=== PATIENT | female | born 1980 | race Caucasian/White ===

== ENCOUNTER 2018-08-12 08:40 | Day surgery (SDC) | payer BC ==
[2018-08-11 09:53] VITALS: BMI 19.8
--- NOTE | 2018-08-12 11:00 | HP ---
History & Physical Update - History History: No Change - Physical Physical: No Change - Assessment Assessment: No Change - Plan Plan: No Change (No change in medical history since pre-operative visit on (see paper chart). No h/o DVT/PE.)
[2018-08-12] MEDS ORDERED: LIDOCAINE HCL 1%, 10 MG/ML (20ML VIAL) ONE (11:13)
[2018-08-12] MEDS ORDERED: EPINEPHrine/PF 1 MG/1 ML (1:1,000) AMPULE ONE (11:13)
[2018-08-12] MEDS ORDERED: GENTAMICIN SO4 80 MG/2 ML VIAL ONE (11:14)
[2018-08-12] MEDS ORDERED: ceFAZolin SODIUM 1 GM VIAL ONE (11:14)
[2018-08-12] MEDS ORDERED: MIDAZOLAM HCL 2 MG/2 ML SINGLE DOSE VIAL ONE ×2 (11:24)
[2018-08-12] MEDS ORDERED: BUPIVACAINE LIPOSOME/PF (EXPAREL) 266 MG/20 ML VIAL NR ONE ×2 (11:30→12:30)
[2018-08-12] MEDS ORDERED: PROPOFOL 20 ML ONE (11:47)
[2018-08-12] MEDS ORDERED: ROCURONIUM BROMIDE 50 MG/5 ML VIAL ONE (11:47)
[2018-08-12] MEDS ORDERED: ceFAZolin SODIUM 1 GM VIAL IVPB ONE (12:10)
[2018-08-12] MEDS ORDERED: LIDOCAINE 1%/EPI 1:100000 (50 ML MULTI DOSE VIAL) NR ONE (12:12)
[2018-08-12] MEDS ORDERED: DEXAMETHASONE SOD PHOSPHATE 4 MG/1 ML VIAL ONE ×2 (12:20→12:21)
[2018-08-12] MEDS ORDERED: ONDANSETRON 4 MG/2 ML VIAL IVPUSH PRN (12:29)
[2018-08-12] MEDS ORDERED: oxyCODONE HCL 5 MG TABLET PO PRN (12:29)
[2018-08-12] MEDS ORDERED: LACTATED RINGERS SOLUTION 1,000 ML IV SCH (12:30)
[2018-08-12] MEDS ORDERED: BUPIVACAINE HCL/PF 0.25% (2.5MG/ML) 10 ML VIAL IJ ONE (12:30)
[2018-08-12] MEDS ORDERED: PROMETHAZINE HCL 25 MG/1 ML VIAL ONE (13:36)
--- NOTE | 2018-08-12 13:56 | OP ---
Operative Note - Note: Operative Date: 08/12/18 Pre-Operative Diagnosis: Bilateral acquired chest wall deformity, s/p b/l mastectomy, malposition with contracture of bilateral implants Operation: Right breast reconstruction, left breast reconstruction, right breast capsulotomy, removal and replacement of right breast implant, left breast capsulotomy, removal and replacement of left breast implant Findings: as dictated Implants: as dictated Post-Operative Diagnosis: Same as Pre-op Surgeon: Lee Maguire Washer Carcass: Sophie Stanton Anesthesiologist/TALK SHOW HOST: Dusty Cochran Anesthesia: General, Local (Exparel/Marcaine) Specimens Removed: right breast mastectomy scar, bilateral breast implants Estimated Blood Loss (mls): 10 (ml) Fluid Volume Replaced (mls): 1,400 (ml) Operative Report Dictated: Yes
[2018-08-12] MEDS ORDERED: PROMETHAZINE HCL 25 MG/1 ML VIAL IVPUSH ONE (13:58)
--- NOTE | 2018-08-12 14:01 | SURG ---
Surgery Service Representative Note Service Representative: Sophie Stanton PA-C (Suzy) Date of Service: 08/12/18 Diagnosis: Bilateral acquired chest wall deformity, s/p b/l mastectomy, malposition with contracture of bilateral implants Procedure: Operation: Right breast reconstruction, left breast reconstruction, right breast capsulotomy, removal and replacement of right breast implant, left breast capsulotomy, removal and replacement of left breast implant I was present for the entirety of the operative procedure. For further detail, please refer to operative report. Visit type - Case Type Case Type: Scheduled - Emergency Emergency Visit: No - New patient This patient is new to me today: Yes Date on this admission: 08/15/18 - Critical Care Critical Care patient: No
[2018-08-12] MEDS ORDERED: ACETAMINOPHEN INJECTION 100 ML IVPB ONE (14:16)
[2018-08-12] MEDS ORDERED: ACETAMINOPHEN 1000 MG/100 ML VIAL (NON FORMULARY) IVPB ONE (14:24)
[2018-08-12] MEDS ORDERED: oxyCODONE HCL 5 MG TABLET ONE (15:49)
[2018-08-12 16:02] VITALS: PULSE 76
[2018-08-12 17:49] VITALS: BP 107/58; TEMP 98.8
--- NOTE | 2018-08-14 13:51 | OP ---
DATE OF OPERATION: 08/12/2018 SURGEON: Yanci Maguire MD ENGINE REPAIR SUPERVISOR SURGEON: FIORELLA Aguillon PREOPERATIVE DIAGNOSES: 1. Bilateral acquired chest wall deformity, status post bilateral mastectomy. 2. Malposition with contracture of bilateral implants bilaterally. POSTOPERATIVE DIAGNOSES: 1. Bilateral acquired chest wall deformity, status post bilateral mastectomy. 2. Malposition with contracture of bilateral implants bilaterally. OPERATIVE PROCEDURE: 1. Right breast reconstruction utilizing other technique. 2. Left breast reconstruction utilizing other technique. 3. Right breast capsulotomy, removal and replacement of right breast implant. 4. Left breast capsulotomy, removal and replacement of left breast implant. OPERATIVE INDICTION: The patient is a young woman who underwent bilateral mastectomy prior and now presents with significant distortion, asymmetry of the reconstructed chest wall, and need for the above procedures for correction of the malpositions. The risks and benefits of surgical versus nonsurgical alternatives as well as material complications were described to the patient on multiple occasions preoperatively and she agreed to the planned procedure. All questions were asked and answered. OPERATIVE PROCEDURE IN DETAIL: The patient was taken to the operating room and, after being marked in the standing position per outline of the procedure and discussion, she was placed supine on the operating room table. Both arms were extended and padded, Venodyne boots were placed, and the entire chest wall was prepped with ChloraPrep solution over its entire extent. At this point, after allowing topical anesthesia and hemostasis with injection of 1% local lidocaine anesthesia, prepping and draping carried out, attention was turned to the mastectomy scars. The mastectomy scar on the right breast was opened down through the skin and to the subcutaneous tissue, through the subcutaneous tissue, down to the underlying capsule. I then performed a capsulotomy on the right breast and the implant was removed and sent for pathologic diagnosis. At this point, a capsulorrhaphy was performed on the right breast by tightening the pocket itself in the lateral, central, and superior portions of the capsule. Copious irrigation with triple-antibiotic solution was carried out and then, symmetrically on the opposite site, the exact same procedure was carried out symmetrically, opening the mastectomy scar, removing the implant, and performing capsulorrhaphy to accept the new implant. At this point, the new implant was chosen. This was a Sientra model 107, 505 mL, smooth, round, silicone gel implant. This was placed into the right breast pocket and in the left breast pocket symmetrically with good shape and contour. The implant was placed using the Carr funnel and no-touch technique. Once this was accomplished, the capsule was closed using running 3-0 PDS suture on the right and left breast symmetrically and then an incision was made at the lateral portion of the flank area and carried down to the fascia of the external oblique muscle. Tissue was then harvested from this area at the lateral side of the flank, removing tissue for reconstructive purposes. Tissue was transferred to the back table, washed, cleansed, and prepared for reconstructive purposes and then transferred to the medial portion of the left and right breasts in the capsule to prevent contracture. This tissue was placed medially, centrally, and inferiorly. She tolerated this part of the operation well. The donor site was closed with interrupted running sutures in order to approximate the tissues and dry sterile dressings with Dermabond and Steri-Strips. She was dressed sterilely on the breasts after closure with 3-0 PDS suture and a 4-0 Biosyn suture in a subcuticular fashion. She was placed into a Surgi-Bra, awakened, extubated, and transferred to the recovery room in satisfactory condition. YANCI MAGUIRE M.D. [id number]
--- NOTE | 2018-08-15 12:34 | PATH ---
Surgical Pathology Report Patient Name: SAMEER BROWN Med. Rec. #: [id number] /Age/Gender: 1980 (Age: 37) / F Account: [id number] Location: [facility] SUR[facility]ICAL Taken: 08/12/2018 Received: 08/12/2018 Reported: 08/15/2018 Physicians: Lee Maguire Specimen(s) Received A: MASTECTOMY SCAR RIGHT B: BILATERAL BREAST IMPLANTS Clinical History High risk of breast cancer, malposition Final Diagnosis A. MASTECTOMY SCAR, RIGHT, EXCISION: SKIN WITH DERMAL FIBROSIS CONSISTENT WITH SCAR AND UNDERLYING SUBCUTANEOUS TISSUE. B. BREAST IMPLANTS, BILATERAL, REMOVAL: BREAST IMPLANTS (2). MACROSCOPIC DIAGNOSIS. Electronically Signed Alicja Rios M.D. Gross Description A. Received in formalin labeled "mastectomy scar right," is a 6.2 x 0.4 cm kaur, irregular, unoriented portion of skin excised to a depth of 0.4 cm. The epidermal surface displays a central, linear, well-healed scar. [employer] Architect sections are submitted in one cassette. B. Received fresh, labeled with the patient's name and indicated on the requisition to be bilateral breast implants, are 2 clear, rubbery, intact breast implants averaging 13 cm in diameter and 4.5 cm in depth. No soft tissue is present. No sections are submitted, gross only. 08/12/201808/12/2018
== END 2018-08-12 16:50 | disposition home or self-care (01) ==
LOC: JASU-SURG 08:40
PROVIDERS: ATTEND Plastic Surgery
PROC: 0HRV0JZ Replacement of Bilateral Breast with Synthetic Substitute, Open Approach (ICD-10-PCS; 2018-08-12)
PROC: 0HPU0JZ Removal of Synthetic Substitute from Left Breast, Open Approach (ICD-10-PCS; 2018-08-12)
PROC: 0HPT0JZ Removal of Synthetic Substitute from Right Breast, Open Approach (ICD-10-PCS; 2018-08-12)
PROC: 0HRV0JZ Replacement of Bilateral Breast with Synthetic Substitute, Open Approach (ICD-10-PCS; 2018-08-12)
PROC: 0HRV07Z Replacement of Bilateral Breast with Autologous Tissue Substitute, Open Approach (ICD-10-PCS; principal; 2018-08-12 10:00)
PROC: 0HNV0ZZ Release Bilateral Breast, Open Approach (ICD-10-PCS; 2018-08-12 10:00)
DX: M95.4 Acquired deformity of chest and rib (principal); T85.44XA Capsular contracture of breast implant, initial encounter; Z90.13 Acquired absence of bilateral breasts and nipples; T85.42XA Displacement of breast prosthesis and implant, initial encounter; Y82.8 Other medical devices associated with adverse incidents; Y92.9 Unspecified place or not applicable
CPT/HCPCS: 84703; 88300-TC; 88304-TC; 94760; J0131